=== PATIENT | female | born 1960 | race Caucasian/White ===

== ENCOUNTER 2022-12-16 10:36 | Emergency (ER) | payer OTHER ==
[2022-12-16 11:05] VITALS: O2SAT 100
--- NOTE | 2022-12-16 11:55 | ED Physician Documentation ---
PD HPI SKIN - Stated complaint Stated Complaint: ALLERGIC REACTION - Chief complaint Chief Complaint: Allergic Rx - History obtained from History obtained from: Patient - Additional information Additional information: Patient is a 62-year-old female presenting for evaluation of a rash that has been present for the past 2 days. Initially started as an itchy rash in the groin and since has moved to other areas of the body. She has tried an allergy medication [id number] without any improvement. 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 Denies any known new exposures such as food, medications, detergents or lotions. Denies difficulty breathing or oral lesions. Review of Systems Constitutional: denies: Fever Cardiac: denies: Chest pain / pressure Respiratory: denies: Dyspnea GI: denies: Abdominal Pain Skin: reports: Rash PD PAST MEDICAL HISTORY - Present Medications Home Medications: Ambulatory Orders Medication Instructions Recorded Confirmed cephALEXin [Keflex] 500 mg PO Q6H #28 cap 12/16/22 predniSONE [Deltasone] 60 mg PO DAILY 5 Days #15 tablet 12/16/22 - Allergies Allergies/Adverse Reactions: Allergies Allergy/AdvReac Type Severity Reaction Status Date / Time No Known Drug Allergies Allergy Verified 12/16/22 12:17 PD ED PE NORMAL - General General: Alert and oriented X 3, No acute distress, Well developed/nourished - HEENT HEENT: Atraumatic - Neck Neck: Supple, no meningeal sign - Cardiac Cardiac: RRR - Respiratory Respiratory: No respiratory distress, Clear bilaterally - Abdomen Abdomen: Soft, Non tender - Derm Derm: Other (Maculopapular rash that is blanching to groin, torso, scalp with raised tender areas along scalp; No vesicles) - Neuro Neuro: Normal speech Results - Vitals Vitals: Vital Signs - 24 hr 12/16/22 12/16/22 10:45 12:17 Temperature 36.9 C 36.7 C Heart Rate 90 85 Respiratory 18 20 Rate Blood Pressure 139/82 H 124/75 O2 Saturation 100 100 Oxygen O2 Source Room air PD Medical Decision Making - ED course ED course: Patient is a 62-year-old female presenting for evaluation of a rash that started 2 days ago and is itchy in the groin area and has since spread to other parts of her body. There are some pustular areas along her scalp. Unclear etiology but given diffuse distribution and irritation I am concerned for an allergic process. I discussed trial of prednisone which she is agreeable to. Keflex. To some tender raised areas along the scalp line which at this time do not appear to be abscesses or boils requiring drainage I will start patient on Keflex. She is advised on need for close follow-up as well as concerning symptoms to return for. Departure - Departure Disposition: 01 Home, Self Care Clinical Impression: Rash and nonspecific skin eruption Condition: Stable Instructions: ED Dermatitis Non Specific Rash Follow-Up: Jolly Hinds MD [Primary Care Provider] - Prescriptions: predniSONE [Deltasone] 60 mg PO DAILY 5 Days #15 tablet cephALEXin [Keflex] 500 mg PO Q6H #28 cap Comments: The exact etiology of your rash is unclear but I am concerned that it started as an allergic reaction given the widespread area of involvement. I am starting you on a short course of prednisone to help with this. I am also concerned ab out a superimposed infection on certain areas perhaps due to itching. I have also started you on an antibiotic and have sent these prescriptions to [facility]. I would recommend Benadryl (diphenhydramine) for itching. Return to the ER with any worsening symptoms. Otherwise I would recommend close follow-up with your primary care provider. Forms: PCP List Discharge Date/Time: 12/16/22 12:18
[2022-12-16 12:24] VITALS: BP 124/75
== END 2022-12-16 12:18 | disposition home or self-care (01) ==
LOC: ED 10:36
DX: R21 Rash and other nonspecific skin eruption (principal)
CPT/HCPCS: 99282; 99283